=== PATIENT | female | born 1955 | race Caucasian/White ===

== ENCOUNTER → 2018-05-01 | Outpatient (CLI) | payer OTHER ==
[~2018-05-01] VITALS: Ht 157.5 cm; Wt 78.3 kg
[~2018-05-01] MED LIST: ADULT LOW DOSE81 MG PO; ADVAIR 100-501 EACH INH; ADVAIR 250-501 EACH INH; ALBUTEROL INHAL17 GM IH; BENADRYL25 MG PO; CARVEDILOL12.5 MG PO; CYMBALTA; DARVON65 MG PO; GABAPENTIN 100100 MG PO; GLUCOPHAGE500 MG PO; HUMALOG100 UNIT/2; LANTUS SC; LANTUS100 UNIT/M SUBQ; LASIX 40 MG TAB40 M1 PO; LIPITOR 10 MG10 M1 PO; LISINOPRIL20 MG PO; NITROSTAT0.4 M1 SUBLING; NOVOLIN R100 UNIT/3 IJ; POTASSIUM20 PO; PROTONIX40 M1 PO; PROZAC; SINGULAIR 10 MG10 M1 PO
[2018-05-01 10:10] VITALS: BP 107/56
[2018-05-01 12:22] LABS: ABSOLUTE NEUTROPHILS 5.3 thou/uL (1.4-8.2); BASOPHILS 0.2 % (0.0-2.0); EOSINOPHILS 1.9 % (0.0-3.0); HEMATOCRIT 38.5 % (37.0-47.0); HEMOGLOBIN 13.7 gm/dL (12.0-15.0); LYMPHOCYTES 25.5 % (24.0-44.0); MCH 30.5 pg (26.0-34.0); MCHC 35.7 g/dL (28.0-37.0); MCV 85.4 fL (80.0-100.0); MONOCYTES 6.1 % (1.0-8.0); PLATELET COUNT 230 thou/uL (150-400); POLYS 66.3 % (36.0-66.0); RBC 4.51 mil/uL (4.20-5.00); RDW 13.2 % (10.5-14.5)
[2018-05-01 12:31] LABS: ALBUMIN 4.3 g/dL (3.4-5.0); ANION GAP 2 mmol/L (7-16); BUN 28 mg/dL (7-18); CALCIUM 10.2 mg/dL (8.5-10.1); CHLORIDE 99 mmol/L (98-107); CO2 33 mmol/L (21-32); CREATININE 1.2 mg/dL (0.6-1.0); GLUCOSE 293 mg/dL (74-106); MAGNESIUM 2.1 mg/dL (1.8-2.4); POTASSIUM 4.4 mmol/L (3.5-5.1); SGOT 13 U/L (15-37); SGPT 22 U/L (30-65); SODIUM 134 mmol/L (136-145); TOTAL BILIRUBIN 0.5 mg/dL (<0.1-1.0); TOTAL PROTEIN 7.7 g/dL (6.4-8.2)
[2018-05-01 12:51] LABS: CHOLESTEROL 195 mg/dL (<200); HDL CHOLESTEROL 49 mg/dL (>40); LDL CHOLESTEROL 118 mg/dL (<100); TRIGLYCERIDE 140 mg/dL (<150); VLDL 28 mg/dL (<40)
[2018-05-01 13:54] LABS: TSH 0.717 uIU/mL (0.358-3.740)
[2018-05-02 01:09] LABS: GLYCOHEMOGLOBIN (HGB A1C) 9.9 % (4.8-5.6)
== END ==
LOC: SEN 08:51
PROVIDERS: Nurse Practitioner Family
DX: I11.0 Hypertensive heart disease with heart failure (principal); J45.909 Unspecified asthma, uncomplicated; E11.9 Type 2 diabetes mellitus without complications; E78.5 Hyperlipidemia, unspecified; K21.9 Gastro-esophageal reflux disease without esophagitis; K59.00 Constipation, unspecified

== ENCOUNTER → 2018-05-27 | Outpatient (CLI) | payer OTHER ==
[2018-05-27 10:44] VITALS: BP 1115/52
== END ==
LOC: SEN 08:41
DX: R10.9 Unspecified abdominal pain (principal); I11.0 Hypertensive heart disease with heart failure; I50.9 Heart failure, unspecified; E11.9 Type 2 diabetes mellitus without complications; J45.909 Unspecified asthma, uncomplicated

== ENCOUNTER → 2018-08-27 | Outpatient (CLI) | payer OTHER ==
[~2018-08-27] MED LIST changes: +CIPRO250 M1 PO; +NOVOLOG100 UNIT/1 SUBQ; +ONDANSETRON HCL4 M2 PO
[2018-08-27 10:14] VITALS: BP 122/72
[2018-08-27 10:21] LABS: URINE BILIRUBIN NEGATIVE (Negative); URINE BLOOD NEGATIVE (Negative); URINE CLARITY CLEAR; URINE COLOR YELLOW; URINE GLUCOSE-RANDOM* 2+ (Negative); URINE KETONES NEGATIVE (Negative); URINE NITRITE-REFLEX NEGATIVE (Negative); URINE PROTEIN (DIPSTICK) NEGATIVE (Negative); URINE SPECIFIC GRAVITY 1.025 (1.005-1.035); URINE UROBILINOGEN 0.2 E.U./dl (0.2-1.0)
[2018-08-27 10:24] LABS: URINE LEUKOCYTES-REFLEX 2+ (Negative)
[2018-08-27 10:34] LABS: BACTERIA-REFLEX 1-9 Few /HPF (None Seen); CASTS None Seen /LPF (None Seen); CRYSTALS None Seen /LPF (None Seen); SQUAMOUS 4-10 Moderate /LPF (0-3); URINE RBC None Seen /HPF (0-2); URINE WBC-REFLEX 6-15 Few /HPF (0-5)
== END ==
LOC: SEN 08:20
PROVIDERS: Nurse Practitioner Family
DX: N39.0 Urinary tract infection, site not specified (principal); E11.9 Type 2 diabetes mellitus without complications; E04.2 Nontoxic multinodular goiter; I50.9 Heart failure, unspecified; J44.9 Chronic obstructive pulmonary disease, unspecified; Z79.4 Long term (current) use of insulin

== ENCOUNTER 2021-04-14 17:17 | Inpatient (IN) | payer OTHER ==
[~2021-04-14] VITALS: Ht 157.5 cm; Wt 69.9 kg
[2021-04-14 17:20] VITALS: BP 110/57
[2021-04-14 17:44] LABS: HEMOGLOBIN 6.9 gm/dL (12.0-15.0); WBC 9.1 thou/uL (4.0-11.0)
[2021-04-14 17:46] LABS: ABSOLUTE NEUTROPHILS 7.2 thou/uL (1.4-8.2); BASOPHILS 0.3 % (0.0-2.0); EOSINOPHILS 0.8 % (0.0-3.0); HEMATOCRIT 20.6 % (37.0-47.0); LYMPHOCYTES 13.1 % (24.0-44.0); MCH 29.6 pg (26.0-34.0); MCHC 33.3 g/dL (28.0-37.0); MCV 88.8 fL (80.0-100.0); MONOCYTES 6.9 % (1.0-8.0); PLATELET COUNT 363 thou/uL (150-400); POLYS 78.9 % (36.0-66.0); RBC 2.32 mil/uL (4.20-5.00); RDW 15.2 % (10.5-14.5)
[2021-04-14 17:53] LABS: ANION GAP 9 mmol/L (7-16); BUN 24 mg/dL (7-18); CALCIUM 9.2 mg/dL (8.5-10.1); CHLORIDE 103 mmol/L (98-107); CO2 30 mmol/L (21-32); CREATININE 1.6 mg/dL (0.6-1.0); GLUCOSE 111 mg/dL (74-106); POTASSIUM 3.8 mmol/L (3.5-5.1); SODIUM 142 mmol/L (136-145)
[2021-04-14 18:04] LABS: ALBUMIN 2.9 g/dL (3.4-5.0); SGOT 11 U/L (15-37); SGPT 23 U/L (14-59); TOTAL BILIRUBIN 0.3 mg/dL (0.2-1.0); TOTAL PROTEIN 6.6 g/dL (6.4-8.2); TROPONIN-I <0.06 ng/mL (<0.06)
[2021-04-14 18:28] VITALS: BP 110/57
[2021-04-14 18:46] LABS: % SATURATION 12 % (20-39); IRON 24 ug/dL (50-170); TIBC 198 ug/dL (250-450)
[2021-04-14 19:40] VITALS: BP 94/68
[2021-04-14 20:01] VITALS: BP 104/59
[2021-04-14] MEDS ORDERED: GLIMEPIRIDE1 MG PO (20:01)
[2021-04-14 20:25] VITALS: BP 104/59
--- NOTE | 2021-04-14 23:26 | NUR ---
PT ADMITTED TO UNIT APPROX 1950, CONSENTS OBTAINED, ADMISSION PACKET PROVIDED. PT AOX4. PT DENIES PAIN AND SOB WHILE ON ROOM AIR. PT TOLERATING PO INTAKE OF FLUIDS AND CLEAR LIQUID DIET WITHOUT ISSUE. PT WITHOUT NAUSEA OR EMESIS. PT RESTING IN BED THROUGHOUT SHIFT, FREQUENT REPOSITIONING ENCOURAGED, REPOSITION ASSISTANCE PROVIDED. REDNESS TO SACRUM NOTED, BARRIER CREAM APPLIED. PT REPORTS NUMBNESS AND TINGLING LLE. CAPILLARY REFILL LESS THAN 3SEC, PERIPHERAL PULSES PALPABLE IN ALL EXTREMITIES. PT ENCOURAGED TO NOTIFY STAFF FOR ALL NEEDS, CALL LIGHT WITHIN REACH, BED ALARM ON, BED LOCKED IN LOWEST POSITION, FREQUENT MONITORING WILL CONTINUE.
[2021-04-15 04:35] LABS: HEMOGLOBIN 6.5 gm/dL (12.0-15.0); MCV 89.3 fL (80.0-100.0)
[2021-04-15 04:37] LABS: MCH 30.7 pg (26.0-34.0); MCHC 34.4 g/dL (28.0-37.0); RBC 2.11 mil/uL (4.20-5.00); RDW 15.1 % (10.5-14.5); WBC 8.5 thou/uL (4.0-11.0)
[2021-04-15 04:38] LABS: HEMATOCRIT 18.9 % (37.0-47.0)
--- NOTE | 2021-04-15 07:05 | EKG ---
[place] [place] [address] ELECTROCARDIOGRAM REPORT Name: ABHINAV LAST Room #: 454-P ADM IN M.R.#: [id number] Admission: 04/14/21 Attend Phys: Benjamín Gil Discharge: Date of : 53 Report #: [id number] [facility] ED Test Date: 2021-04-14 Test Time: 17:27:47 Pat Name: ABHINAV LAST Department: Room: [facility] Gender: F Distribution Tech: javad : 1955 Requested By: Kristopher Agustin Order Number: [id number] MD: Troy Desai Measurements Intervals [place] Rate: 91 P: 47 CO: 123 QRS: 43 QRSD: 94 T: 58 QT: 369 QTc: 455 Interpretive Statements Sinus rhythm Baseline wander in lead(s) V4 Compared to ECG 04/09/2010 01:37:26 No significant changes Electronically Signed On 04-15-2021 7:05:35 CDT by Troy Desai [email or web address] <ELECTRONICALLY SIGNED> By: Troy Desai MD, [facility] 04/15/21 0705 1727 26 Troy Desai MD, FAC /EPI
--- NOTE | 2021-04-15 07:58 | NUR ---
WOUND CARE CONSULT; AWAKE, ALERT, COOPERATIVE, STATES SHE HAS ISSUES AT HOME W/ SACRAL COCCYX AREA GETTING IRRITATED, STATES "I KNOW I SIT TOO LONG AND I HAVE TROUBLE HOLDING MY URINE, I WEAR DEPENDS' , AREA PINKISH RED, NO SKIN BREAKDOWN, NO S/S INFECTION, STATES SHE TRIED USING PURWICK CATH BUT MOVES TOO MUCH IN BED TO KEEP IN PLACE, REDDISH MOST LIKELY DUE TO INCONT AND PRESSURE, ENCOURAGED TO OFF LOAD, TURN Q 2HOURS, WILL ORDER LOW LOSS PUMP TO BED RECOMMENDATIONS; Z GUARD BID AND PRN, TURN Q 2HOURS, OFF LOADING, LOW AIR LOSS PUMP TO BED, RISK CONTROL PRODUCT LIABILITY DIRECTOR AWARE
[2021-04-15 08:30] VITALS: BP 98/47
--- NOTE | 2021-04-15 09:57 | NUR ---
Notication of pressure ulcer-wound care has assessed as stage I coccyx due to pressure and incontinence. Pt newly admitted w/ anemia, limited information available in chart. On clear liquid diet. Work up in progress. Will follow up again 04/18 to complete nutrition eval when more information available.
[2021-04-15 10:23] VITALS: BP 98/52
[2021-04-15 10:45] VITALS: BP 107/51; BP 107/61; BP 98/52
--- NOTE | 2021-04-15 11:17 | NUR ---
PT ADMITTED RELATED TO ANEMIA. CM REVIEWED CHART AND SPOKE WITH CARE TEAM. CM MET WITH PT AT BEDSIDE THIS DAY. PT APPEARED TO BE A&0 X4. CM ROLE INTRODUCED. PT INICATED SHE LIVES ALONE IN AN INDEPEDNENT LIVING APARTMENT AT [place] [address] [address] [facility] WITH HER TWO CATS. PT INDICATED THAT SHE HAD USED A WC AND A 4WW TO ASSIST WITH MOBILITY MEDICAL ANTHROPOLOGIST. PT INDICATED SHE HAD BEEN ON SERVICE WITH [facility] AND THAT SHE WOULD LIKE TO USE THEM AGAIN UPON DC. PT INDICATED THAT PCP IS DR. KANA PARK. CARE TEAM INDICATED THAT PT MAY BE MEDICALLY STABLE TO [place] HOME TOMORROW SUNDAY. CLINICAL UPDATE SENT TO [facility]. PT WILL LIKELY NEED TRANSPORT HOME. [facility] : P: F: [facility]:
--- NOTE | 2021-04-15 12:21 | NUR ---
OT RECEIVED ORDERS FOR EVAL AND TREAT. CHART REVIEW REVEALS PT. HGB 6.5 AND HCT 18.9 NEEDING BLOOD TRANSFUSION. SPOKE WITH RN, RN REQUESTING THERAPY EVALS LATER THIS AFTERNOON. DEFER OT AT THIS TIME.
--- NOTE | 2021-04-15 13:53 | NUR ---
FAXED CLINICAL UPDATES TO [facility]. CONFIRMED WITH KIRTI/LEV THAT THEY RECEIVED REPORTS AND PATIENT WILL BE READY FOR DISCHARGE TOMORROW, 04/16/21. SHE WILL CONTACT PATIENT ON 04/17/21 TO ARRANGE SERVICES. ORDERS AND SUMMARY TO BE FAXED TO [facility] WHEN COMPLETED. [facility] P [phone]; FAX [phone]
[2021-04-15 16:30] VITALS: BP 101/52
--- NOTE | 2021-04-15 19:42 | NUR ---
assumed pt care around 0700. PT ALERT X ORIENTED X 4. ON ROOM AIR. IV RT FA.ON TELE MONITORING. HB LEVEL 6.5, SO 1 U OF BLOOD GIVEN AROUND 1030. REDNESS ON THE BUTTOCK AREA, APPLIED Z GUARD.ACCUCKCAM, ELLY. PT HAD CONCERN ABOUT HER FUROSEMIDE NOT BEING GIVEN SHE USUALLY TAKES AT HOME, RN NOTIFIED AND DR SAID HE WILL LOOK AT IT. NAUSEA CONTOLLED BY ZOFRAN. SHIFT REPORT GIVEN TO NIGHT NURSE.
[2021-04-15 19:46] VITALS: BP 112/58
--- NOTE | 2021-04-16 04:05 | NUR ---
Pt. rested quietly at intervals during the night when checked on during frequent rounds. Her blood sugar at bedtime was 61 and snack was given and brought blood sugar up to 71. She refused her insulin. Pt. offers no c/o nausea or pain. Bed alarm is on.
[2021-04-16 05:00] LABS: HEMATOCRIT 22.8 % (37.0-47.0); HEMOGLOBIN 7.6 gm/dL (12.0-15.0); MCH 29.8 pg (26.0-34.0); MCHC 33.3 g/dL (28.0-37.0); MCV 89.3 fL (80.0-100.0); RBC 2.55 mil/uL (4.20-5.00); RDW 15.4 % (10.5-14.5)
[2021-04-16 05:27] LABS: ALBUMIN 2.5 g/dL (3.4-5.0); CALCIUM 8.7 mg/dL (8.5-10.1); CREATININE 1.2 mg/dL (0.6-1.0); PHOSPHORUS 3.3 mg/dL (2.5-4.9); POTASSIUM 3.6 mmol/L (3.5-5.1)
[2021-04-16 07:26] VITALS: BP 118/57
[2021-04-16] MEDS ORDERED: FERREX 150 PLU1 EAC1 PO (09:21)
[2021-04-16 14:35] VITALS: BP 118/57
[2021-04-16 15:09] VITALS: BP 121/57
--- NOTE | 2021-04-16 17:08 | NUR ---
PT ALERT AND ORIENTED TIMES FOUR. VSS. PT DENIES PAIN/SOA. PT TOLERATES MEDS AND MEALS. PT UP TO BSC WITH ASSIST OF ONE. PLANS TO DISCHARGE TODAY. WILL CONTINUE TO MONITOR.
== END 2021-04-16 16:10 | disposition home health service (06) | DRG 811 ==
LOC: ER 17:17 → EROBS 18:28 → 4W 18:28
PROVIDERS: Emergency Medicine; ADMIT Hospitalist; ATTEND Hospitalist
PROC: 30233N1 Transfusion of Nonautologous Red Blood Cells into Peripheral Vein, Percutaneous Approach (ICD-10-PCS; principal; 2021-04-15)
DX: D50.9 Iron deficiency anemia, unspecified (principal); E43 Unspecified severe protein-calorie malnutrition; N17.0 Acute kidney failure with tubular necrosis; I50.32 Chronic diastolic (congestive) heart failure; E11.65 Type 2 diabetes mellitus with hyperglycemia; K59.00 Constipation, unspecified; E66.9 Obesity, unspecified; J44.9 Chronic obstructive pulmonary disease, unspecified; Z79.4 Long term (current) use of insulin; Z79.899 Other long term (current) drug therapy; Z88.5 Allergy status to narcotic agent; Z88.8 Allergy status to other drugs, medicaments and biological substances; Z88.1 Allergy status to other antibiotic agents; Z88.2 Allergy status to sulfonamides; Z68.28 Body mass index [BMI] 28.0-28.9, adult
CPT/HCPCS: 10045